=== PATIENT | female | born 2000 | race Two or more races ===

== ENCOUNTER 2024-10-19 09:00 | Outpatient (RCR) | payer MEDICAID, SELFPAY ==
[2024-10-12 09:40] VITALS: BP 119/68; PULSE 78; RESP 16; TEMP 36.2; O2SAT 98; BMI 35.4
[2024-10-12] MEDS: ferumoxytoL (NON-ESRD) 510 MG in SODIUM CHLORIDE 0.9% 100 ML 234 MG IV (09:58)
[2024-10-12 10:55] VITALS: BP 123/64; PULSE 79; RESP 17; TEMP 36.2; O2SAT 100
[2024-10-19 09:09] VITALS: BP 111/69; PULSE 90; RESP 16; TEMP 36.1; O2SAT 99; BMI 35.8
[2024-10-19] MEDS: ferumoxytoL (NON-ESRD) 510 MG in SODIUM CHLORIDE 0.9% 100 ML 234 MG IV (09:38)
[2024-10-19 10:18] VITALS: BP 110/66; PULSE 88; RESP 17; TEMP 36.4; O2SAT 98
== END 2024-10-24 23:59 | disposition home or self-care (01) ==
LOC: SFLEX 09:00
PROVIDERS: PCP Family Medicine; Referring Provider Obstetrics & Gynecology; Visit Provider Obstetrics & Gynecology
PROC: (CPT 96365; principal; 2024-10-12 09:00)
DX: O99.013 Anemia complicating pregnancy, third trimester (principal); D50.8 Other iron deficiency anemias
CPT/HCPCS: 96365; J7050; Q0138